=== PATIENT | male | born 1950 | race Caucasian/White ===

== ENCOUNTER 2016-12-01 11:16 | Inpatient (IN) | payer MEDICARE ==
[~2016-12-01] VITALS: Ht 180.3 cm; Wt 95.5 kg
[2016-12-01] VITALS (9 sets, daily range): BP systolic 152–168; BP diastolic 78–95; PULSE 68–76; RESP 16–20; O2SAT 95–98
[~2016-12-01 11:16] MED LIST: HYDR-4003 PO
[2016-12-01] MEDS ORDERED: ASPI325T32 PO (11:22)
--- NOTE | 2016-12-01 11:29 | ED.REPORT ---
HPI-Stroke / CVA Dec 01, 2016 ED Provider: Barney Manuel MD A 66 year old male with no pertinent medical history presents to the ED complaining of weakness. The pt developed a headache two days ago, followed by dizziness and lower extremity weakness. He now feels unable to walk even short distances due to this weakness. The pt describes his headache as a "throbbing pressure" that is exacerbated by movement and relieved somewhat by laying down. He has taken aspirin, which also relieved his pain somewhat. The pt also admits to right sided chest "pressure" and occasional palpitations, but denies vision changes, difficulty speaking, difficulty swallowing, fever, photophobia, nausea or vomiting. Nursing Notes Stated Complaint: DIZZY,HEADACHES,SORE WHEN WALKS Chief Complaint: Neuro Symptoms/ Deficits Nursing Notes Reviewed: Yes Allergies: Coded Allergies: No Known Allergies (Verified Allergy, Unknown, 12/01/16) Scheduled PRN Aspirin (Aspirin) 325 Mg Tablet 325 MG PO DAILY PRN PRN For Headache (Reported) General Time Seen by Provider: 11:28 Chief Complaint Other (Weakness) Hx Obtained From: Patient Arrived By: Walk-in Time last known well two days ago Sudden in Onset?: No Symptom Duration: 2 days Progression Since Onset: Unchanged Recent Healthcare: No recent hospitalization Similar Sx Previous: No Risk Factors NIH Stroke Scale Level of Consciousness: Alert and responsive (0) Ask Month & Age: Both questions right (0) Open/Close Eyes/Hand Emergency Department Nurse: Performs both tasks (0) Horizontal EO Movements: None (0) Visual Mobley: No visual loss (0) Facial Palsy: Minor paralysis (1) (mild left facial droop) Right Arm Motor Drift (10s): No drift 10 sec (0) Left Arm Motor Drift (10s): Drift, not touch bed (1) Right Leg Motor Drift (5s): No drift 5 sec (0) Left Leg Motor Drift (5s): Drift, not touch bed (1) Limb Ataxia FNF/Heel-Scott: No ataxia (0) Sensation (Arms/Legs/Face): No sensory loss (0) Language Aphasia: No aphasia, normal (0) Dysarthria: Slurring intelligible (1) Extinction/Inattention: No exctinct/inattent (0) NIHSS Score: 4 Time NIHSS Performed: 12:13 Date NIHSS Performed: Dec 01, 2016 )( CVA Risk Stratification Age >60No Diabetes mellitus, No Hypertension, No Prior CVA/TIA, No Smoking Risk factors reviewed Past Medical History Past Medical History None reported Past Surgical History None reported Smoking History Never Smoker Social History Alcohol Use: Denies alcohol use Drug Use: Denies drug use Occupation , retired Ambulatory Status Independent Review of Systems Review of Systems Note: denies difficulty speaking or swallowing Constitutional: Denies: Fever Eyes: Denies: Blurred bilateral, Photophobia Respiratory: Denies: Non-productive cough, Shortness of breath Cardiovascular: Reports: Chest pain, Palpitations GI: Denies: Abdominal pain, Nausea, Vomiting Musculoskeletal: Denies: Back pain, Neck pain Skin: Denies Rash Neurologic: Reports: Dizziness, Headache, Weakness, Denies: Vision change Complete sys rev & neg: except as marked. Physical Exam Initial Vital Signs Vital Signs (First) Date Time Temp Pulse Resp B/P Pulse Ox O2 Delivery O2 Flow Rate FiO2 12/01/16 11:18 36.5 74 16 162/95 98 Room Air Initial VS: Reviewed General/Constitutional: Awake, Alert Head / Eyes: Atraumatic, Normocephalic, PERRL, EOMI Neck: Atraumatic, Supple, Full range of motion Respiratory / Chest: Atraumatic, Breath sounds NL, Breath sounds = bilat, No respiratory distress Cardiovascular: Heart rate NL, Regular rhythm, Heart sounds NL Neurologic: Oriented X3, No sensory deficits mild left facial droop slight LUE drift LLE drift mild dysarthria ENT: Atraumatic, Airway patent, Mucous membranes moist Abdomen: Atraumatic, Soft, Non-tender Upper Extremity / MS: Atraumatic, Full range of motion Lower Extremity / Pelvis / MS: Atraumatic, Full range of motion Skin: Atraumatic, Color NL, No rash, Warm, Dry Psychiatric: Affect NL, Mood NL Back: Atraumatic, Full range of motion Interpretation & Diagnostics Lab Results Interpretation Result Diagram: 12/01/16 1214 12/01/16 1214 Test 12/01/16 12:14 White Blood Count 3.7th/mm3 (3.8-10.1) Red Blood Count 4.70mil/mm3 (4.40-5.80) Hemoglobin 12.9g/dL (13.8-17.2) Hematocrit 39.1% (41.0-50.0) Mean Corpuscular Volume 83.2fL (81-100) Mean Corpuscular Hemoglobin 27.4pg (27.0-35.0) Mean Corpuscular Hemoglobin Concent 33.0% (32.0-37.0) Red Cell Distribution Width 14.8% (12.3-15.4) Platelet Count 145bil/L (150-400) Neutrophils (%) (Auto) 59.5% (40-74) Lymphocytes (%) (Auto) 28.0% (14-46) Monocytes (%) (Auto) 10.8% (4-12) Eosinophils (%) (Auto) 1.1% (0-5) Basophils (%) (Auto) 0.3% (0-3) Prothrombin Time 11.3sec (8.1-12.5) Prothromb Time International Ratio 1.05ratio Sodium Level 138mEq/L (134-144) Potassium Level 3.8mEq/L (3.5-5.2) Chloride Level 99mEq/L (97-108) Carbon Dioxide Level 25mmol/L (18-29) Blood Urea Nitrogen 14mg/dL (8-27) Creatinine 0.67mg/dL (0.76-1.27) Estimat Glomerular Filtration Rate 126mL/min (>59) Glucose Level 137mg/dL (60-99) Calcium Level 9.4mg/dL (8.5-10.1) Total Bilirubin 0.7mg/dL (0.0-1.2) Aspartate Amino Transf (AST/SGOT) 68U/L (0-50) Alanine Aminotransferase (ALT/SGPT) 54U/L (0-44) Alkaline Phosphatase 70U/L (25-160) Troponin T 0.010ug/L (0.0-0.011) Total Protein 9.1g/dL (6.4-8.4) Albumin 4.3g/dL (3.4-5.0) Hold Land Top Tube Received (Received) ECG Interpretation ECG Interpretation: normal sinus rhythm with a rate of [address]/T changes Time: 12:30 Interpreted by: ED physician X-Ray Chest Interpretation Chest Xray Interpretation: IMPRESSION: Normal for age, source of pain is not found. Dictated by: Jorge Domingo M.D. on 12/01/2016 at 12:30 Approved by: Jorge Domingo M.D. on 12/01/2016 at 12:30 Interpretation / Wet Read by: Interpret - Radiologist CT Head Interpretation IMPRESSION: Normal for age, source of current symptoms is not seen. Dictated by: Jorge Domingo M.D. on 12/01/2016 at 14:15 Approved by: Jorge Domingo M.D. on 12/01/2016 at 14:15 Interpretation / Wet Read by: Interpret - Radiologist Re-Eval/Medical Decision Med Decision/Clinical Course 66-year-old male presenting with dizziness, headache, left facial droop, lower extremity weakness 2 days. On exam he had slight left facial droop, left upper extremity and left lower extremity drift. He is not a TPA candidate given last or number was [address] scan acute pathology. Labs are unremarkable. His symptoms did improve while he was here. He has no identifiable risk factors for TIA or stroke. He will be admitted for TIA stroke workup. Aspirin given. Source of Hx: Old records Re-Evaluation/Progress : Time of Eval: 12:13 Patient Status: Condition improved Re-Evaluation/Progress Note: Pt rechecked, who is comfortable. Further physical exam is performed. The diagnosis and plan for admission are discussed. The pt understands and agrees with the plan. All questions are addressed at this time. Consultation : Referral / Consult Name: Ankit Walker MD Consulted With: Hospitalist Call Returned at: 15:23 Otr Owner Operator: Agrees with eval, Agrees with plan, Accepts admit Note: Spoke with Dr. Walker, hospitalist, regarding pt's case. Dr. Walker agrees with the evaluation and agrees to admit the pt. Counseled Regarding: Diagnosis, Lab results, Need for admission Patient Discharge & Departure Impression: Primary Impression: CVA (cerebral vascular accident) CVA mechanism: unspecified Qualified Code: I63.9 - Cerebral infarction, unspecified Disposition: ADMITTED TO HOSPITAL Discharge Condition All VS Reviewed: Yes Condition: Stable Scribe Attestation Portions of this note were transcribed by Prasad Barreto. I, Dr. Manuel personally performed the history, physical exam and medical decision-making; I reviewed and confirmed the accuracy of the information in the transcribed note. Barney Manuel MD Dec 01, 2016 11:29 PRASAD BARRETO Dec 01, 2016 12:06
[2016-12-01 12:29] LABS: BASOPHILS % (AUTO) 0.3 % (0-3); EOSINOPHILS % (AUTO) 1.1 % (0-5); MONOCYTES % (AUTO) 10.8 % (4-12); Mean Corpuscular Hemoglobin 27.4 pg (27.0-35.0); Mean Corpuscular Volume 83.2 fL (81-100); NEUTROPHILS % (AUTO) 59.5 % (40-74); Platelet Count 145 bil/L (150-400)
--- NOTE | 2016-12-01 12:32 | DRSVH ---
PROCEDURE: X-RAY CHEST ONE VIEW, PORTABLE ([id number]) INDICATIONS: chest pain TECHNIQUE: One view of the chest was acquired. COMPARISON: None. FINDINGS: Surgical changes and devices: None. Lungs and pleura: No pleural effusions or pneumothorax. Lungs are clear. Mediastinum: Mediastinal contours appear normal. Heart size is normal. Bones and chest wall: No suspicious bony lesions. Overlying soft tissues appear unremarkable. IMPRESSION: Normal for age, source of pain is not found. Dictated by: Jorge Domingo M.D. on 12/01/2016 at 12:30 Approved by: Jorge Domingo M.D. on 12/01/2016 at 12:30
[2016-12-01 12:44] LABS: INR 1.05 ratio
[2016-12-01 12:51] LABS: TROPONIN T 0.01 ug/L (0.0-0.011)
--- NOTE | 2016-12-01 14:02 | NUR ---
Evaluation completed. Please go to "Notes" then click on "Assessments and Notes" (bottom left corner of screen). Then select appropriate discipline tab on top of screen.
--- NOTE | 2016-12-01 14:17 | DRSVH ---
PROCEDURE: CT BRAIN WITHOUT CONTRAST ([id number]) INDICATIONS: L facial droop, LUE weaknes x 2 days TECHNIQUE: Noncontrast 4.5 mm thick angled axial sections acquired from the foramen magnum to the vertex, with c oronal reformats. COMPARISON: None. FINDINGS: Image quality: Excellent. CSF spaces: Basal cisterns are patent. No extra-axial fluid collections. Ventricles are normal in size and shape. Brain: No midline shift. No intracranial masses or hemorrhage. Chavis-white matter interface is norm al. Skull and face: Calvarium and visualized facial bones are intact, without suspicious lesions. Sinuses: Visualized sinuses and mastoids are clear. IMPRESSION: Normal for age, source of current symptoms is not seen. Dictated by: Jorge Domingo M.D. on 12/01/2016 at 14:15 Approved by: Jorge Domingo M.D. on 12/01/2016 at 14:15
[2016-12-01] MEDS ORDERED: Ondansetron 2 mg/mL 2 mL Inj IVPUSH PRN ×2 (15:40→15:50)
[2016-12-01] MEDS ORDERED: Alum-Mag Hydrox-Simeth 30 mL Suspension PO PRN ×2 (15:40→15:50)
[2016-12-01] MEDS ORDERED: 0.9% Sodium Chloride 1,000 ML IV SCH (15:48)
[2016-12-01] MEDS ORDERED: Polyethylene Glycol (PEG) 17 Gm Powder PO PRN (15:50)
[2016-12-01] MEDS ORDERED: oxyCODONE-Acetamin 5-325 mg Tablet PO PRN (16:10)
--- NOTE | 2016-12-01 16:15 | PCM.HPMED ---
Subjective Date of Service Dec 01, 2016 Primary Provider: Admitting Physician: Ankit Walker MD Primary Care Physician: Kena Attending Physician: Ankit Walker MD Admit Status: From the Emergency Department, 23-Hour Observation Chief Complaint: Headaches/2 days Lightheadedness/ 2 days Generalized weakness more on left lower extremities/one day History of Present Illness: 66-year-old gentleman with no significant past medical history presented with headache, lightheadedness and left lower extremity weakness. Patient states he started to have frontal headache 2 days ago. He states pain is intermittent but does not go away completely. Pain goes up to 10/10,8/10 right now . He states pain gets much better if he does not move his head but worse if he moves his head. Denies photophobia. Denies fever or neck pain. He stayed in bed yesterday taking aspirin with some improvement. He also feels lightheaded when standing up and moves his head. Denies vertigo. Continued to have headache which prompted ED visit. He has been having generalized weakness for the last 2 days. He felt his left leg is more weak than the right when he walked from his car to the emergency room. Denies any numbness or tingling. Denies loss of consciousness Patient did not notice any facial assymetry ED visit :BP 162/95. Initial NIHSS by ED physician 4 ( 1 each for left leg drift, left arm, dysarthria, facial asymmetry ) ,NIHSS 0 when I saw him CT brain negative. Admission requested for stroke workup Review of Systems: Comprehensive review of systems performed, pertinent positives and negatives included in history of present illness Allergies Coded Allergies: No Known Allergies (Verified Allergy, Unknown, 12/01/16) Home Medications None except ASA in the last last 2 days PMH none Surgical History none Family History Mother at 86 of old age. No significant medical problems Father at age 70's due to pneumonia. He had only one lung Lost brother at age 59 to brain cancer Social History Hx Alcohol Use: No Hx Substance Use: No Smoking Status: Never Smoker Exam Vital Signs Vital Sign - Last Date Time Temp Pulse Resp B/P Pulse Ox O2 Delivery O2 Flow Rate FiO2 12/01/16 15:53 69 20 166/86 95 Room Air 12/01/16 11:18 36.5 Exam Gen. patient is lying comfortably in hospital bed HEENT: Head is normocephalic atraumatic, Pupils equal and reactive, extraocular movements intact, Lungs clear to auscultation bilaterally Heart regular rate and rhythm without murmurs gallops or rubs Abdomen soft nontender without hepatosplenomegaly Extremities pulses are present dorsalis pedis posterior tibialis and radial. tSkin is warm and dry there are no rashes, Psych alert and oriented to person place and time Neuro cranial nerves II through XII are grossly intact. No motor or sensory deficit. No assymetery noted. Lymph: There is no lymphadenopathy appreciated in the cervical supra infraclavicular regions : no cano Lab and Diagnostics Result Diagram: 12/01/16 1214 12/01/16 1214 X-Rays, CTs and MRIs PROCEDURE: CT BRAIN WITHOUT CONTRAST ([id number]) INDICATIONS: L facial droop, LUE weaknes x 2 days MPRESSION: Normal for age, source of current symptoms is not seen. Dictated by: Jorge Domingo M.D. on 12/01/2016 at 14:15 Assessment & Plan 66-year-old gentleman with no significant past medical history presented with headache, lightheadedness and left lower extremity weakness. # headache with reported left-sided weakness,poa,active -Due to complex migraine versus TIA vs others -Meniningitis unlikely given no fever and no meningeal sign.will consider LP if workup unrevealing and symptom persist -Initial NIHSS by ED physician 4 ( 1 each for left leg drift, left arm, dysarthria, facial asymmetry ) ,NIHSS 0 when I saw him - permissive hypertension,will not treat BP if SBP < 220 -ASA 325 given in ED, continue 81 milligram by mouth daily -MRI stroke protocol and MR venogram to rule out cavernous venous thrombosis -NS at 100ml/h -a1c,lipid panel,echo ordered -Percocet for pain -Neurochecks,PT,OT # Hypertension -Likely due to pain # Mild transaminitis -Monitor and workup tomorrow if persists dvt ppx scd full code per patient Observation Resuscitation Status: CPR: Attempt Resuscitation Ankit Walker MD Dec 01, 2016 16:15
--- NOTE | 2016-12-01 16:33 | NUR ---
Arrived 1439 - Received report from Pebbles Harrell RN in the ED who said he was being admitted for a possible stroke. 160 - He [place] [facility] [place] and was settled into his room. Telemetry placed (sinus rhythm 60-70s). Currently looking over his menu for dinner. Care continues. Addendum: 12/01/16 at 1849 by DUNCAN WALTER RN [id number] - H/P, allergies, full assessment (including neuro and skin), and medication reconciliation completed. Stroke educational booklet given to the patient to look over and ask questions if needing. Care continues.
[2016-12-01] MEDS ORDERED: .Epic Conversion Completed XX PRN (18:50)
[2016-12-01 19:10] LABS: APPEARANCE,URINE CLEAR (CLEAR,HAZY); COLOR,URINE YELLOW (YELLOW); PH,URINE 6.5 (5.0-8.0)
[2016-12-01 19:11] LABS: OCCULT BLOOD,URINE NEGATIVE (NEGATIVE); UROBILINOGEN,URINE NORMAL (NORMAL)
== END 2016-12-02 01:34 | disposition admitted as inpatient to this hospital (09) | DRG 951 ==
LOC: SED 11:16 → MPC 15:06
PROVIDERS: ADMIT Internal Medicine; ATTEND Internal Medicine
DX: R69 Illness, unspecified (principal)